=== PATIENT | male | born 1945 | race Caucasian/White ===

== ENCOUNTER 2017-02-19 14:34 | Inpatient (IN) | payer OTHER ==
--- NOTE | ~2017-02-19 | CN ---
Consultation Report [facility] [address] [place]. [address] NAME: GINA DUBON : 47 STATUS : ADM IN [facility]#: [id number] AGE: 71 ADM/REG DATE : 02/19/17 MR#: [id number] REPORT SERV DATE: 02/21/17 DICTATED BY: RADHA RYAN IV DATE: 02/20/17 REPORT STATUS : Draft TRANSCRIBED BY: MODTed DATE: 02/20/17 CRITICAL CARE CONSULT DATE OF CONSULTATION: 02/20/2017 REASON FOR REQUEST: Hypotension and worsening respiratory distress with hypoxemia and acute kidney injury. HISTORY OF PRESENT ILLNESS: History was obtained from the patient and the records. Mr. Dubon is a 71-year-old male with a history of myelodysplastic syndrome, coronary artery disease, hypertension, chronic kidney disease, recurrent left pleural effusion, status post decortication, seizure disorder, hyperlipidemia, who is transferred to the ICU from the floor with a large right pleural effusion, shortness of breath, hypotension, and acute kidney injury. The patient noted the insidious onset of increased shortness of breath approximately three weeks ago. There was no clear precipitating event or exposure. He did have a cough productive of yellowish phlegm. He denied fevers, chills, sweats, or hemoptysis. He has had no recent dental procedures, loss of consciousness, or seizures. He was empirically given Levaquin which he does not think provide any significant benefit. He was noted to have a rise in his creatinine for which his diuretic therapy was held; however, he developed increasing peripheral edema and shortness of breath with noted right pleural effusion for which his diuretic therapy was resumed. He presented back with increased creatinine and worsening status with hypotension for which he was admitted. On the floor, he received fluid resuscitation, however, had worsening creatinine and worsening shortness of breath for which he has moved to the ICU. Systolic blood pressure at the time of transfer was in the 70s. The patient has a history of a recurrent left-sided pleural effusion for which he underwent thoracoscopy and decortication last year, which demonstrated chronic pleuritis with negative cultures. PULMONARY HISTORY: Remarkable for no history of childhood asthma or known adult obstructive lung disease. He did have pneumonia as a child. He is lifelong nonsmoker with no secondary smoke exposure. 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 He is up to date on both seasonal influenza vaccine as well as pneumococcal vaccinations. PAST MEDICAL HISTORY: Remarkable for: 1. Myelodysplastic syndrome. 2. Coronary artery disease. 3. Past hypertension. 4. Chronic kidney disease. 5. Recurrent left pleural effusion. 6. Seizure disorder. 7. Hyperlipidemia. SURGERIES: 1. Left thoracoscopy and decortication. Consultation Report [address] [place]. [address] NAME: GINA DUBON : 47 STATUS : ADM IN [facility]#: [id number] AGE: 71 ADM/REG DATE : 02/19/17 MR#: [id number] REPORT SERV DATE: 02/21/17 DICTATED BY: RADHA RYAN IV DATE: 02/20/17 REPORT STATUS : Draft TRANSCRIBED BY: KANG DATE: 02/20/17 2. Coronary artery bypass grafting. 3. Port-A-Cath placement on the right. ALLERGIES: NO KNOWN DRUG ALLERGIES. MEDICATIONS: At the time of transfer, he is receiving albumin 25 g q.6 hours, Aricept 10 mg daily, aspirin 81 mg daily, Bumex 2 mg q.8 hours, Celexa 30 mg daily, heparin 5000 units q.8 hours, Lamictal 100 mg daily, Lipitor 20 mg at bedtime, Pepcid 20 mg daily, and vitamin D daily. SOCIAL HISTORY: Remarkable for no tobacco, alcohol, or illicit drug use. He is . Has two biological children. FAMILY HISTORY: Remarkable for both parents with hypertension, both in 1992. REVIEW OF SYSTEMS: 14 systems reviewed. Pertinent positives as noted above. PHYSICAL EXAMINATION: GENERAL: This is a thin, elderly male, in moderate respiratory distress with shallow rapid respiratory efforts. VITAL SIGNS: Temperature 98.6, respiratory rate is 28, saturation 93% on 4 L via nasal cannula, blood pressure 78/36, and pulse is 62. HEENT: The patient is normocephalic, atraumatic. Extraocular movements are intact. Pupils are reactive to light. Sclerae and conjunctivae normal. He has a nasal cannula in place. He has dry oral mucosa with a Mallampati III airway and narrowing of the posterior pharyngeal space. NECK: Without any palpable lymphadenopathy or thyromegaly. CHEST: The patient has bronchial breath sounds and decreased breath sounds retirement up the right hemithorax. There are some minimal crackles at the left base. No wheezes or rhonchi are noted. CARDIOVASCULAR: Jugular venous pulsations appear to be approximately 7 cm. He has 1+ carotid upstrokes. No obvious bruit. He has a regular S1, S2 with a late systolic murmur heard best at the left upper sternal border. No clear S3 is noted. Peripheral pulses are diminished. ABDOMEN: Protuberant. There is a questionable fluid wave. There is a huge spleen almost down to the pelvis. Liver edges slightly low. There are hypoactive bowel sounds. There are no other palpable masses. EXTREMITIES: Demonstrate ankle edema. There is no cyanosis, clubbing, or palpable cords. NEUROLOGIC: The patient moves all extremities. Strength is 5-/5 and symmetric and sensation is intact to light touch. LABORATORY DATA: Chest x-ray demonstrates an enlarging right-sided pleural effusion appears to be partially loculated. There is prominent cardiac silhouette. There is minimal pleural reaction at the left base. Consultation Report [address] [place]. [address] NAME: GINA DUBON : 47 STATUS : ADM IN [facility]#: [id number] AGE: 71 ADM/REG DATE : 02/19/17 MR#: [id number] REPORT SERV DATE: 02/21/17 DICTATED BY: RADHA RYAN IV DATE: 02/20/17 REPORT STATUS : Draft TRANSCRIBED BY: KANG DATE: 02/20/17 CBC: Hemoglobin 7.5, hematocrit 24.2, platelet count was 84,000, and white blood cell count is 10.4. INR is 1.6. Procalcitonin level was 0.75 and then on repeat 0.59. Chemistry: Sodium 140, potassium 4.1, chloride 108, bicarbonate 18, BUN 105, creatinine 6.09, and glucose of 91. BNP was 215. Troponin was less than 0.02. TSH is 0.924. Cortisol level was 24.6. Blood gas shows pH 7.27, pCO2 of 33, pO2 of 72. Urinalysis demonstrated 58 hyaline casts. ASSESSMENT AND PLAN: 1. Respiratory. Oxygen will be titrated to maintain saturation 90% to 94% range. Diagnostic and therapeutic right-sided thoracentesis will be obtained. X-ray will be obtained after the procedure and tomorrow. A chest, abdominal, and pelvic CT scan will be obtained for further evaluation. Albuterol will be given via EzPAP half dose q.4 hours while awake and q.2 hours as needed. 2. Infectious disease. We will send fluid for cultures. Sputum will be sent for Gram stain and culture. Zosyn will be given 3.375 g q.12 hours. Florastor 1 twice a day. 3. Cardiovascular. Levophed to maintain mean arterial pressure greater than 65. EKG will be obtained. Echocardiogram was just performed and that was unremarkable per tech. We will wait for the results. 4. Renal. 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 5. Gastrointestinal. The patient has a huge spleen on exam. Abdominal distention will be evaluated with the CT scan. Pepcid will be continued for GI prophylaxis, n.p.o. for now. 6. Endocrinologic. Cortisol level will be obtained. Thyroid functions are adequate, and the blood sugar is not elevated. 7. Neurologic. We will continue the Lamictal and Aricept. Thiamine will be given 200 mg daily x5 days. 8. Hematologic. Heparin subcutaneous for deep vein thrombosis prophylaxis. We will transfuse for low hemoglobin. Thank you for consulting us. We will accept the patient to the [facility] while on the unit. Nephrology is to place a catheter and start PROCESS CHEESE COOKER today. ADDENDUM Total time seen for critical care consult is 50 minutes, 10:10 to 11 o'clock. DORYS/KANG Radha Ryan IV, M.D. / [id number] Consultation Report [address] [place] [place] [address] NAME: GINA DUBON : 47 STATUS : ADM IN [facility]#: [id number] AGE: 71 ADM/REG DATE : 02/19/17 MR#: [id number] REPORT SERV DATE: 02/21/17 DICTATED BY: RADHA RYAN IV DATE: 02/20/17 REPORT STATUS : Draft TRANSCRIBED BY: MODL DATE: 02/20/17 / [id number] CC: Librado Kaufman MD
--- NOTE | ~2017-02-19 | HP ---
History And Physical [place] [id number] [facility] [place]. [address] NAME: GINA DUBON : [birth year] STATUS : ADM IN [facility]#: [id number] AGE: 71 ADM/REG DATE : 02/19/17 MR#: [id number] REPORT SERV DATE: 02/19/17 DICTATED BY: CLAUDIA CORTEZ II DATE: 02/19/17 REPORT STATUS : Draft TRANSCRIBED BY: MODL DATE: 02/19/17 DATE OF ADMISSION: 02/19/2017 PRIMARY ONCOLOGIST: Dr. Suarez. CHIEF COMPLAINT: Weakness, dizziness, and HANNAH. HISTORY OF PRESENT ILLNESS: The patient is a 71-year-old male with history of MDS, CKD, CAD, seizure disorder, hypertension, who presented to [facility] from Dr. Suarez's office due to worsening HANNAH. The patient began having shortness of breath a week ago today and was placed on Levaquin after chest x-ray showed concern for a right-sided consolidation, but also was noted to have a moderate-sized pleural effusion. The patient states his shortness of breath has actually started getting better, but he began having worsening edema. He saw Dr. Suarez on Sunday and given his edema, restarted his torsemide which he takes p.r.n. His baseline creatinine is around 1.2-1.5 and was 2.6 on 02/12/2017 when he had the chest x- ray and diagnosed with pneumonia. Today, in followup with Dr. Suarez, his creatinine is now 5.8, so he was asked for admission. The patient states that over the last few days, his abdomen has started to get larger and his edema has been getting worse. He says his shortness of breath has actually gotten better since the Levaquin. Currently, upon presenting to [facility], his pressure is down in the 70s/30s up into the 80s in Trendelenburg. He denies any fevers or chills. Denies any dysuria, though mentions he has not been urinating much recently. Denies any abdominal pain, nausea, vomiting, or diarrhea. States his last bowel movement was Sunday. He also notes he has been feeling very weak and dizzy and even had a presyncopal episode today while going to Dr. Suarez's office. notes history of orthostatic hypotension and the patient has been feeling dizzy for quite some time, reportedly over the last few months. Also of note, the patient had complained of some chest pain and called Dr. Baxter's office to refill nitroglycerin. At which point, he ordered an echocardiogram and stress test on 02/08/2017, which was negative for ischemia and no abnormalities on echo. REVIEW OF SYSTEMS: Otherwise, 10-point review of systems negative, except for HPI. PAST MEDICAL HISTORY: 1. Recurrent pleural effusions with history of left-sided thoracoscopy with decortication and pleurodesis. 2. CAD with coronary artery bypass graft x1 in 2014. 3. Myelodysplastic syndrome with right chest Port-A-Cath, followed by [facility]. Current therapy on hold. 4. History of TIA. 5. History of seizure disorder, on Lamictal. 6. Hypertension. 7. Hyperlipidemia. 8. Pituitary adenoma. History And Physical [address] [address] NAME: GINA DUBON : 47 STATUS : ADM IN [facility]#: [id number] AGE: 71 ADM/REG DATE : 02/19/17 MR#: [id number] REPORT SERV DATE: 02/19/17 DICTATED BY: CLAUDIA CORTEZ II DATE: 02/19/17 REPORT STATUS : Draft TRANSCRIBED BY: KAGN DATE: 02/19/17 9. BPH. 10.Memory loss. 11.CKD stage 2 or 3, baseline 1.2 to 1.5. SURGICAL HISTORY: 1. Left thoracoscopy with decortication and talc pleurodesis. 2. Coronary artery bypass graft, Port-A-Cath placement. HOME MEDICATIONS: Aspirin 81 mg p.o. daily, Lipitor, Coreg, vitamin D3, Celexa, Decadron injection, Colace, Aricept, Lamictal, lysine, hydrochloride, melatonin, Nitrostat, Zantac, Flomax, Demadex. FAMILY HISTORY: Negative for malignancy, heart disease, or renal disease. SOCIAL HISTORY: Denies any alcohol, tobacco, or drug use. Currently . PHYSICAL EXAMINATION: VITAL SIGNS: Blood pressure 86/47, pulse 58, respirations 15, O2 saturation 95% on 2 L. GENERAL: The patient is alert and oriented x3, in no acute distress. NECK: Supple. Nontender. No lymphadenopathy or thyromegaly. HEENT: Moist mucous membranes. Pupils are equal, round, and reactive to light. Conjunctivae clear. RESPIRATORY: Lungs are diminished on the right with dullness to percussion up to the upper lobe. Clear to auscultation on the left. Nonlabored breathing. CARDIOVASCULAR: Regular rate and rhythm. No murmurs, rubs, or gallops. ABDOMEN: Soft, nontender, and nondistended. Normoactive bowel sounds. EXTREMITIES: 1+ bilateral lower extremity pitting edema. No lesions, rashes, or wounds. NEURO: No focal deficits. LABORATORY DATA: From Dr. Vann's office today showed white blood cell count 9.8, hemoglobin 7.4, platelets 86, glucose 99, BUN 93, creatinine 5.8. Sodium 136, potassium 3.8, chloride 103, CO2 of 22, calcium 8.1, total protein 5.3, albumin 2.9, ALT 29, AST 36, alkaline phosphatase 51, T bilirubin 0.9. ASSESSMENT AND PLAN: The patient is a 71-year-old male with: 1. Acute kidney injury on chronic kidney disease stage 2 to 3 of uncertain etiology at this point in time, though given hypotension, certainly concerning for acute tubular necrosis, though we will have to rule out obstruction. We will place Giordano catheter and consult Nephrology. We will order renal ultrasound. Check urine electrolytes and though the patient is somewhat overloaded with edema given his hypotension, we will give him a 500 mL bolus of IV fluids and consider escalation to IMCU with no improvement. 2. Hypotension. Concerning for sepsis versus medication induced. His white count is normal. He is afebrile and his heart rate is in the 50s concerning for too high dose of Coreg. He does not appear dehydrated, so we will obtain procalcitonin, labs, lactic acid. Hold his antihypertensives and give a bolus of IV fluid and follow closely. 3. Right pleural effusion with history of left pleural effusion that was recurrent and History And Physical [address] [place]. [address] NAME: GINA DUBON : 47 STATUS : ADM IN [facility]#: [id number] AGE: 71 ADM/REG DATE : 02/19/17 MR#: [id number] REPORT SERV DATE: 02/19/17 DICTATED BY: CLAUDIA CORTEZ II DATE: 02/19/17 REPORT STATUS : Draft TRANSCRIBED BY: KANG DATE: 02/19/17 subsequently underwent decortication with pleurodesis. We will go ahead and order right thoracentesis. 4. Acute hypoxic respiratory failure secondary to above. We will wean oxygen as tolerated. 5. Recently treated pneumonia. We will recheck chest x-ray and evaluate for sepsis, though holding antibiotics at this point in time. 6. Myelodysplastic syndrome. Counts appear stable per labs from Oncology office. No need for transfusion, though we will transfuse p.r.n. in acces port. 7. History of chronic diastolic congestive heart failure with recent normal echo, 02/07/2017, essentially normal. We will check BNP. 8. Benign prostatic hypertrophy, on Flomax. We will hold Flomax for hypotension and place Giordano. 9. History of seizure disorder, on Lamictal. We will continue. 10.The patient is full code. PATTI/KANG Claudia Cortez II, MD / [id number] CC: Claudia Cortez II, MD
--- NOTE | ~2017-02-19 | DS ---
Discharge Summary [facility] [address] [place]. [address] NAME: GINA DUBON : 47 STATUS : DIS IN PAT#: [id number] AGE: 71 ADM/REG DATE : 02/19/17 MR#: [id number] REPORT SERV DATE: 02/24/17 DICTATED BY: RADHA RYAN IV DATE: 02/23/17 REPORT STATUS : Draft TRANSCRIBED BY: MODTed DATE: 02/23/17 ADMISSION DATE: 02/19/2017 DISCHARGE DATE: 02/23/2017 ADMITTING DIAGNOSES: 1. 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 2. Right pleural effusion. 3. Hypoxemic respiratory insufficiency, improved. 4. Hypotension, now on midodrine with adequate blood pressure control, initially on Levophed. 5. Acute on chronic kidney injury with transient BIOLOGY INTERN. 6. Probable bacterial pneumonia. 7. Paroxysmal atrial fibrillation with rapid ventricular response. 8. Coronary artery disease. 9. Hyperlipidemia. 10.Seizure disorder. 11.Recurrent left pleural effusion, status post VATS and decortication. CONSULTANTS: 1. Vascular Surgery. 2. Nephrology. 3. Hematology/Oncology. 4. Critical Care Medicine. PROCEDURES: 1. PICC line placement on 02/20/2017. 2. Right thoracentesis on 02/20/2017. 3. Vas-Cath placement in the right femoral vein on 02/20/2017. 4. BIOLOGY INTERN from the 02/20/2017 through 02/22/2017. 5. PleurX catheter placement on the right on 02/22/2017. MEDICATIONS: At the time of discharge include Aricept 10 mg at bedtime, Augmentin 500 mg three times a day for additional three days, Celexa 30 mg daily, Cordarone 200 mg twice a day, Florastor one twice a day, Lamictal 100 mg daily, Lipitor 20 mg daily, Pepcid 20 mg daily, Midodrine 10 mg three times a day, albuterol p.r.n., and vitamin D daily. HOSPITAL COURSE: The patient was admitted to the Hospitalist Service on 02/19/2017 with several weeks of increasing shortness of breath. The patient had a large partially loculated right pleural effusion. The patient had developed hypotension with increasing oxygen needs and distress for which he was moved to the ICU on 02/20/2017. The patient underwent a right-sided thoracentesis removal 3 L of serosanguineous that relatively sanguinous fluid with an LDH of 662. There was dramatic symptomatic relief. Cultures of this were negative; however, there were more blasts in the pleural fluid than on the periphery concerning for leukemic involvement of the pleura. The patient had a Vas-Cath placed on 02/20/2017 with initiation of BIOLOGY INTERN by Nephrology, which occurred more than 48 hours with clinical improvement. The peak creatinine was 6.09 and was 1.81 at the time of Discharge Summary [place] [id number] [place]. [address] NAME: GINA DUBON : 47 STATUS : DIS IN PAT#: [id number] AGE: 71 ADM/REG DATE : 02/19/17 MR#: [id number] REPORT SERV DATE: 02/24/17 DICTATED BY: RADHA RYAN IV DATE: 02/23/17 REPORT STATUS : Draft TRANSCRIBED BY: KANG DATE: 02/23/17 discharge. The patient developed atrial fibrillation with rapid ventricular response for which he was loaded twice with amiodarone 150 mg on a 24-hour amiodarone drip and now is on 200 mg twice a day without recurrence. He received pain medications with adequate control. All cultures were negative; however, he did have some infiltrate in the right lung for which he will be empirically treated initially in the hospital with Zosyn and switched to Augmentin renally adjusted at the time of discharge. There was a minimally elevated procalcitonin level. The findings were reviewed multiple times with family members. The patient failed therapy for his MDS with a concern about this being a transformation AML, he chose to have comfort measures performed. A PleurX catheter was placed on 02/22/2017 for drainage of fluid was over 1 L on the day of procedure and was 150 mL today. This will be used to drain fluid as an outpatient. Hospice was consulted and will accept the patient at discharge later on today. They will provide all medications as listed. The patient was made a DNR during the hospitalization with discharge to hospice. DORYS/KANG Radha Ryan IV, M.D. / [id number] CC: Librado Martinez IV, MD Edward Arrowsmith, M.D.
--- NOTE | ~2017-02-19 | CN ---
Consultation Report [facility] [address] [place]. [address] NAME: GINA DUBON : 47 STATUS : ADM IN PAT#: [id number] AGE: 71 ADM/REG DATE : 02/19/17 MR#: [id number] REPORT SERV DATE: 02/19/17 DICTATED BY: RADHA MOON DATE: 02/19/17 REPORT STATUS : Draft TRANSCRIBED BY: MODL DATE: 02/19/17 NEPHROLOGY CONSULTATION DATE OF CONSULTATION: 02/19/2017 REASON FOR CONSULT: Acute kidney injury/CKD. HISTORY OF PRESENT ILLNESS: Mr. Dubon is a 71-year-old white male, whom I saw in December 2015 when he developed acute kidney injury after talc pleurodesis and decortication of the left pleural effusion. Creatinine peaked at 2.2. His baseline creatinine has been between 1.2 and 1.4 dating back to October 2015. He has not followed up in the office. On 10/24/2016, creatinine was 1.5. A week ago, today, he was in the ER at [facility] when he was found to have creatinine of 2.6 and "pneumonia." He was given a prescription for Levaquin and sent home. Today, he went to Dr. Suarez's office where he was found to have a large right pleural effusion and reportedly worsened renal function. Those labs are not on the chart, but the family reports that today his creatinine was around 5.0. Repeat labs have not yet been received. He has had dyspnea, weight loss, edema, ascites, poor oral intake and appetite loss over the last several weeks. He has no diarrhea, nausea, or vomiting. PAST MEDICAL HISTORY: 1. CKD, baseline creatinine 1.2 to 1.4. 2. Atherosclerotic cardiovascular disease, status post robotic CABG x1 in August 2015. 3. Myelodysplastic syndrome, on chemotherapy, last dose a month ago, today per family report. 4. History of TIA. 5. History of hypertension. 6. Hyperlipidemia. 7. History of seizures. 8. BPH. 9. Left talc pleurodesis and decortication in November 2015. 10.History of acute kidney injury as per HPI. MEDICATIONS: Aspirin, Lipitor, Coreg, vitamin D, Celexa, Dacogen injection, Colace, Aricept, Lamictal, melatonin, Zantac, Flomax, and torsemide 40 mg daily for the last three days. FAMILY HISTORY: No ESRD. SOCIAL HISTORY: He is a lifelong nonsmoker, , retired, lives in [place]. His is a home health care nurse and in the room. REVIEW OF SYSTEMS: Please see HPI for pertinent details. Consultation Report [address] [place]. [address] NAME: GINA DUBON : [birth year] STATUS : ADM IN [facility]#: [id number] AGE: 71 ADM/REG DATE : 02/19/17 MR#: [id number] REPORT SERV DATE: 02/19/17 DICTATED BY: RADHA MOON DATE: 02/19/17 REPORT STATUS : Draft TRANSCRIBED BY: KANG DATE: 02/19/17 PHYSICAL EXAMINATION: VITAL SIGNS: Temperature not recorded, blood pressure 84/48, pulse 94, respirations 15, and 95% sat 2 liters per nasal cannula. GENERAL: He is an ill-appearing dyspneic white male, who is awake, alert, oriented, and cooperative with the exam. He is sitting up in his hospital stretcher in the CDU. HEENT: Sclerae without icterus. Conjunctivae are not injected. Oropharynx is clear. Mucous membranes are dry. NECK: JVD is 8 to 10 cm. LUNGS: He has decreased breath sounds at the right base associated with dyspnea and tachypnea. HEART: Regular rate and rhythm. 2/6 murmur. No rub. ABDOMEN: Soft, distended with ascites, and nontender to palpation. Bowel sounds are present throughout without rebound or guarding. EXTREMITIES: Show 2 to 3+ pitting lower extremity edema to the thighs. SKIN: Shows no rash. NEURO: Grossly nonfocal. MUSCULOSKELETAL: Shows no active tenosynovitis or gout. : Deferred. There is no Giordano catheter yet in place. DIAGNOSTIC DATA: Chest x-ray pending. Labs are pending. UA from November 2015 showed no proteinuria. ASSESSMENT AND PLAN: Mr. Dubon has chronic kidney disease, previous baseline creatinine 1.2 to 1.4, has now developed acute kidney injury in the setting of hypotension, myelodysplastic syndrome, hypoalbuminemia, hypokalemia, and anasarca. His other medical history is as outlined above. Likely, he has developed acute kidney injury related to renal hypoperfusion due to hypotension. It is unclear at this point whether he might simply have intravascular volume depletion and third spacing from low albumin versus another cause such as possible sepsis or urinary outlet obstruction? Followup labs drawn today as they are not yet available. Give albumin and Bumex tonight. Giordano catheter. He is receiving IV fluid bolus at the time of this dictation. Watch labs, provide supportive care, hopefully dialysis can be avoided. Re quantify urine protein and check urine sodium. We will follow closely with you. updated at bedside and agrees with treatment plan. TYLER/KANG Radha Consultation Report [facility] [address] [place]. [address] NAME: GINA DUBON : 47 STATUS : ADM IN PAT#: [id number] AGE: 71 ADM/REG DATE : 02/19/17 MR#: [id number] REPORT SERV DATE: 02/19/17 DICTATED BY: RADHA MOON DATE: 02/19/17 REPORT STATUS : Draft TRANSCRIBED BY: KANG DATE: 02/19/17 Librado Moon / [id number] CC: Munir Dodson II, MD
--- NOTE | ~2017-02-19 | OP ---
Record Of Operation [facility] [address] [place]. [address] NAME: GINA DUBON : 47 STATUS : ADM IN [facility]#: [id number] AGE: 71 ADM/REG DATE : 02/19/17 MR#: [id number] REPORT SERV DATE: 02/20/17 DICTATED BY: JENY CALIXTORADHA CISNEROSE DATE: 02/20/17 REPORT STATUS : Draft TRANSCRIBED BY: MODTed DATE: 02/20/17 DATE OF PROCEDURE: 02/20/2017 THORACENTESIS PROCEDURE NOTE PREOPERATIVE DIAGNOSIS: Hypoxemic respiratory insufficiency with a large right-sided pleural effusion. POSTOPERATIVE DIAGNOSES: Hypoxemic respiratory insufficiency with a large right-sided pleural effusion, and sanguinous fluid with 3 L removed with residual fluid left behind. INDICATIONS: Diagnostic and therapeutic right-sided thoracentesis with an enlarging right- sided pleural effusion with hypoxemic respiratory insufficiency. CONTRAINDICATIONS: None. CONSENT: The risks, benefits, alternative, evaluations, and treatments were discussed with the patient. Possible complications were reviewed to include air leak around the lung, bleeding, infection, low oxygen level, and even potentially . The patient agreed to the procedure with the consent signed, and witnessed on the front of the chart. PREOPERATIVE LABS: The patient's platelet count was 77,000. INR was 1.6. POWERHOUSE OILER: Radha Ryan M.D. METHOD: The patient was placed on the edge of the bed with his arms drawn across his chest and resting on a table top. The SonoSite unit was used to localize the pleural fluid. There was a very large pleural fluid collection with what appeared to be some thickened pleura. The intended area was in the ninth intercostal space just lateral to the midscapular line. The area was prepped with chlorhexidine and sterilely draped. Anesthesia was provided to the skin and deeper tissues with 4 mL of 1% lidocaine solution without epinephrine. As the needle was advanced to the deeper tissues, it was always kept perpendicular to the patient's chest wall. It was advanced to the rib, then over the rib into the pleural space. Sanguinous fluid was obtained. A small skin incision was made, and the thoracentesis catheter was advanced in a similar manner to the rib, then over the rib into the pleural space. A total of 3 L of sanguinous fluid was removed without difficulty. There was still residual fluid; however, the patient developed some pressure sensation. The procedure was stopped. Fluid sent for studies. Estimated blood loss was less than 1 mL. Re-evaluation with the ultrasound demonstrated residual fluid and no evidence for pneumothorax. The chest x-ray demonstrated residual fluid with some markedly decrease in the amount of pleural fluid. There was no pneumothorax. The patient tolerated the procedure well with excellent relief of symptoms. CT/[facility] Record Of Operation [address] [place]. [address] NAME: GINA DUBON : 47 STATUS : ADM IN PAT#: [id number] AGE: 71 ADM/REG DATE : 02/19/17 MR#: [id number] REPORT SERV DATE: 02/20/17 DICTATED BY: RADHA RYAN IV DATE: 02/20/17 REPORT STATUS : Draft TRANSCRIBED BY: KANG DATE: 02/20/17 Radha Ryan IV, M.D. / [id number] CC: Librado Kaufman MD
--- NOTE | ~2017-02-19 | EGD ---
EGD REPORT [facility] [address] [address] NAME: GINA DUBON : 47 STATUS : ADM IN PAT#: [id number] AGE: 71 ADM/REG DATE : 02/19/17 MR#: [id number] REPORT SERV DATE: 02/22/17 DICTATED BY: LAMBERTO QUIÑONEZ DATE: 02/22/17 REPORT STATUS : Draft [facility]ANSCRIBED BY: [facility] DATE: 02/22/17 Pulmonology Patient Name: Gina Dubon Procedure Date: 02/22/2017 2:10 PM Date of : 1945 Attending MD: LALITHA QUIÑONEZ MD Procedure Date No Time: 02/22/2017 Procedure: Indwelling Tunnelled Cuffed Pleural Catheter Placement Indications: Right pleural effusion Providers: LALITHA QUIÑONEZ MD Referring MD: RADHA FERMIN IV Medicines: Intradermal lidocaine 2% with epinephrine 1:100,000 20 mls. See anesthesia record Complications: No immediate complications Procedure: Pre-Anesthesia Assessment: - A History and Physical has been performed. Patient meds and allergies have been reviewed. The risks and benefits of the procedure and the sedation options and risks were discussed with the patient. All questions were answered and informed consent was obtained. Patient identification and proposed procedure were verified prior to the procedure by the physician and the nurse in the pre-procedure area in the procedure room. Mental Status Examination: alert and oriented. Airway Examination: normal oropharyngeal airway. Respiratory Examination: decreased breathe sounds at right base, but otherwise clear. CV Examination: normal and RRR, no murmurs, no S3 or S4. ASA Grade Assessment: III - A patient with severe systemic disease. After reviewing the risks and benefits, the patient was deemed in satisfactory condition to undergo the procedure. The anesthesia plan was to use monitored anesthesia care (MAC). Immediately prior to administration of medications, the patient was re-assessed for adequacy to receive sedatives. The heart rate, respiratory rate, oxygen saturations, blood pressure, adequacy of pulmonary ventilation, and response to care were monitored throughout the procedure. The physical status of the patient was re-assessed after the procedure. Findings: .After consent was obtained, a time out was performed. The patient was placed in the left lateral decubitus position with the ipsilateral arm above the patient's head. The patient was sedated by anesthesia and ultrasound survey was performed with identification of pleural fluid and surrounding structures including the diaphragm and lung tissue. EGD REPORT [address] [address] NAME: GINA DUBON : [birth year] STATUS : ADM IN [facility]#: [id number] AGE: 71 ADM/REG DATE : 02/19/17 MR#: [id number] REPORT SERV DATE: 02/22/17 DICTATED BY: LAMBERTO QUIÑONEZ DATE: 02/22/17 REPORT STATUS : Draft TRANSCRIBED BY: [employer] DATE: 02/22/17 Ultrasound image interpretation: The depth to the chest wall is approximately 2 cms. The depth of the pocket is approximately 9 cms. Ultrasound images were permanently documented. The site of entry was marked using ultrasound guidance. After donning cap, mask, sterile gown and gloves, the patient was prepped with chlorhexadine and drapped. 10 ccs of 2% lidocaine with epinephrine 1:100,000 was used to numb the region. A finder needle was then used to locate fluid with aspiration of serosanguinous fluid. An angiocath sheath was inserted followed by guidewire placement. A small incision was performed at insertion site of the guide wire to expose the subcutaneous tissue. Then an additional 20 ccs of 2% lidocaine with epinephrine was used to numb the subcutanous tract and second incision site. A similar second incision was made approximately 5 cm below the initial incision. The pleural catheter was tunnelled in the usual manner. The trocar was inserted over the wire and the pleural catheter placed into pleural space. 1800 ccs of serosanguinous fluid was drained. The catheter was secured using 3.0 silk and a tegaderm dressing was applied. Impression: Right pleurX catheter placement 1800 ccs of serosanguinous fluid was drained. Recommendation: 1. Post-procedure stat portable chest x-ray 2. Hospice to drain daily 3. Case management consultation for discharge planning 4. Follow up with the pulmonary clinic in 10 to 14 days to remove stitches and inspect site Attending Participation: I personally performed the entire procedure. LALITHA QUIÑONEZ MD 02/22/2017 2:13 PM This report has been signed electronically. Number of Addenda: 0 Note Initiated On: 02/22/2017 2:10 PM [address] [address]
[~2017-02-19 14:34] MED LIST: ARICEPT10 PO; ASAB PO; BRILINTA90 MG PO; CARDU4 PO; CELEXA20 PO; CO Q-10100 MG PO; CORDARONE PO; COREG12 PO; COREG25 PO; COREG6 PO; COZ25 PO; DEMA20 PO; EXELON3 PO; FLOMAX4 PO; HEMOCYTET PO; IMDUR30 PO; K-TABS10 MEQ PO; KDUR20 PO; KEPPRA1000 MG PO; KEPPRA500 PO; L40 PO; LAMICTAL10 PO; LIPITOR20 PO; LIPITOR40 PO; LISINOPRIL40 MG PO; NITROQUICK0.4 MG SL; NITROSTAT0.4 MG SL; NORV10 PO; PCET PO; PLAVIX PO; PRILO PO; PROTONIX PO; RAN500 PO; SUPER B COMP OR; T PO; TRANDAT300 PO; VASOTEC10 PO; VIDAZA; VIDAZA100 MG IJ; VITAMIN B-121000 MC1 SL; ZOCOR20 PO
[2017-02-19] MEDS ORDERED: ARICEPT10 PO (15:55)
[2017-02-19] MEDS ORDERED: LIPITOR20 PO (15:56)
[2017-02-19] MEDS ORDERED: ASAB PO (15:56)
[2017-02-19] MEDS ORDERED: CELEXA10 PO (15:56)
[2017-02-19] MEDS ORDERED: COREG12 PO (15:56)
[2017-02-19] MEDS ORDERED: DACOGEN50 MG IV (15:57)
[2017-02-19] MEDS ORDERED: DEMA20 PO (15:58)
[2017-02-19] MEDS ORDERED: LAMICTAL10 PO (15:59)
[2017-02-19] MEDS ORDERED: FLOMAX4 PO (15:59)
[2017-02-19] MEDS ORDERED: NITROSTAT0.4 MG SL (15:59)
[2017-02-19] MEDS ORDERED: VITAMIN D31000 UNIT PO (16:01)
[2017-02-19] MEDS ORDERED: L-LYSINE500 M1 PO (16:01)
[2017-02-19] MEDS ORDERED: ZANTAC150 MG PO (16:02)
[2017-02-19] MEDS ORDERED: DSS PO (16:02)
[2017-02-19] MEDS ORDERED: MELATONIN5 M1 PO (16:02)
[2017-02-19 17:17] LABS: MEAN CORPUS HGB CONC 30.4 g/dL (32.0-36.0); MEAN CORPUSCULAR HEMOGLOB 26.2 pg (26.0-34.0); MEAN CORPUSCULAR VOLUME 86.3 fL (80-100); NUCLEATED RED BLOOD CELLS 1.9 /100WBC (0-0); RBC DISTRIBUTION WIDTH 18.8 % (12.0-16.0); RED CELL COUNT 2.63 10/6/uL (4.7-6.1); WHITE BLOOD CELLS 8.9 10/3/uL (4.5-10.5)
[2017-02-19 17:19] LABS: HEMATOCRIT 22.7 % (40.0-51.0); HEMOGLOBIN 6.9 g/dL (13.6-17.8); PLATELET COUNT 73 10/3/uL (150-400)
[2017-02-19 17:22] LABS: MANUAL DIFF YES %
[2017-02-19 17:33] LABS: INTERNATIONAL NORMAL RATI 1.6 UNITS (-); PROTIME (NOT ORD) 19.2 SEC (12.0-14.5)
[2017-02-19 17:37] LABS: ALBUMIN 2.6 G/DL (3.5-5.0); ALKALINE PHOSPHATASE 58 U/L (45-117); BUN (BLOOD UREA NITROGEN) 99 MG/DL (6-23); CALCIUM, SERUM 8.1 MG/DL (8.5-10.4); CHLORIDE, SERUM 109 MMOL/L (96-112); CO2 (CARBON DIOXIDE) 21 MMOL/L (24-34); CREATININE 5.94 MG/DL (0.70-1.30); GFR AFRICAN AMERICAN 10 ML/MIN (>=60); GFR NON AFRICAN AMERICAN 9 ML/MIN (>=60); GLOBULIN 2.5 G/DL (2.5-4.1); GLUCOSE, SERUM 96 MG/DL (60-99); PHOSPHORUS, SERUM 8.2 MG/DL (2.5-4.5); SGOT(AST) 23 U/L (5-40); SGPT(ALT) 13 U/L (5-65); SODIUM, SERUM 141 MMOL/L (135-148); TOTAL BILIRUBIN 0.9 MG/DL (0-1.2); TOTAL PROTEIN 5.1 G/DL (6.0-8.5); TROPONIN I <0.02 NG/ML (<0.05); ULTRASENSITIVE TSH 0.924 MCIU/ML (0.358-3.740)
[2017-02-19 17:51] LABS: PARTIAL THROMBO TIME > 150.0 SEC (22.5-37.2)
[2017-02-19 17:56] LABS: BAND NEUTROPHILS 10 %; BASOPHILS 1 %; BASOPHILS ABSOLUTE (CALC) 0.09 10/3/uL (0.0-0.16); BLASTS 16 % (0); EOSINOPHILS 1 %; EOSINOPHILS ABSOLUTE (CALC) 0.09 10/3/uL (0.0-0.53); IMMATURE GRANS ABSOLUTE (CALC) 0.62 10/3/uL (0.0-0.11); LYMPHOCYTES 30 %; LYMPHOCYTES ABSOLUTE (CALC) 2.67 10/3/uL (0.67-4.30); METAMYELOCYTES 4 %; MONOCYTES 3 %; MONOCYTES ABSOLUTE (CALC) 0.27 10/3/uL (0.21-1.20); MYELOCYTES 3 %; NEUTROPHILS ABSOLUTE (CALC) 3.74 10/3/uL (2.02-8.40); SEGMENTED NEUTROPHIL (0) 32 %; TOTAL NUCLEATED CELLS 100
[2017-02-19 17:57] LABS: OVALOCYTES 3+ (>30/OIF) (0-2/OIF); TEARDROP SHAPED RBCS OCC (0-2/OIF)
[2017-02-19 17:58] LABS: ANISOCYTOSIS 1+ (5-10/OIF) (0-5/OIF); GIANT PLATELET FEW; PLATELET ESTIMATE DEC (ADEQUATE)
[2017-02-19 17:59] LABS: ACANTHOCYTES OCC (0-2/OIF)
[2017-02-19 19:26] LABS: ASCORBIC ACID (UR NOT ORDER) NEG (NEG); BILIRUBIN, URINE SMALL (NEG); KETONE, URINE NEGATIVE (NEG); LEUKOCYTE ESTERASE(NOT OR NEG (NEG); WBC (NOT ORDERED) (RFLEX) < 1 (0-5)
[2017-02-19 21:10] LABS: PROCALCITONIN 0.75 ng/mL (<0.5)
[2017-02-20 05:27] LABS: CHLORIDE, SERUM 108 MMOL/L (96-112); CO2 (CARBON DIOXIDE) 18 MMOL/L (24-34); CREATININE 6.09 MG/DL (0.70-1.30); GFR AFRICAN AMERICAN 10 ML/MIN (>=60); GFR NON AFRICAN AMERICAN 9 ML/MIN (>=60); GLUCOSE, SERUM 91 MG/DL (60-99); PHOSPHORUS, SERUM 8.7 MG/DL (2.5-4.5); POTASSIUM, SERUM 4.1 MMOL/L (3.5-5.3); SODIUM, SERUM 140 MMOL/L (135-148)
[2017-02-20 05:46] LABS: BUN (BLOOD UREA NITROGEN) 105 MG/DL (6-23)
[2017-02-20 06:31] LABS: HEMATOCRIT 24.2 % (40.0-51.0); HEMOGLOBIN 7.5 g/dL (13.6-17.8); MEAN CORPUSCULAR HEMOGLOB 26.7 pg (26.0-34.0); MEAN CORPUSCULAR VOLUME 86.1 fL (80-100); NUCLEATED RED BLOOD CELLS 1.2 /100WBC (0-0); PLATELET COUNT 84 10/3/uL (150-400); RBC DISTRIBUTION WIDTH 18.2 % (12.0-16.0); RED CELL COUNT 2.81 10/6/uL (4.7-6.1); WHITE BLOOD CELLS 10.4 10/3/uL (4.5-10.5)
[2017-02-20 06:37] LABS: MANUAL DIFF YES %
[2017-02-20 07:50] LABS: ANISOCYTOSIS 1+ (5-10/OIF) (0-5/OIF); BAND NEUTROPHILS 24 %; BASOPHILS 3 %; BASOPHILS ABSOLUTE (CALC) 0.31 10/3/uL (0.0-0.16); BLASTS 24 % (0); ELLIPTOCYTES 1+ (3-10/OIF) (0-2/OIF); IMMATURE GRANS ABSOLUTE (CALC) 0.52 10/3/uL (0.0-0.11); LYMPHOCYTES 14 %; LYMPHOCYTES ABSOLUTE (CALC) 1.46 10/3/uL (0.67-4.30); METAMYELOCYTES 3 %; MONOCYTES 3 %; MONOCYTES ABSOLUTE (CALC) 0.31 10/3/uL (0.21-1.20); MYELOCYTES 2 %; PLATELET ESTIMATE ADQ (ADEQUATE); SEGMENTED NEUTROPHIL (0) 27 %; TOTAL NUCLEATED CELLS 100
[2017-02-20 07:51] LABS: POLYCHROMASIA 1+ (2-5/OIF) (0-1/OIF); TEARDROP SHAPED RBCS OCC (0-2/OIF)
[2017-02-20 08:48] LABS: CARBOXYHEMOGLOBIN 1.5 % (0-3); DEVICE NC; HCO3 (ACTUAL BICARBONATE) 14.8 MEQ/L (23-27); HEMOBLOGIN CONTENT 8.1 G/DL (14-18); INSTRUMENT SERIAL # 8083; METHEMOGLOBIN 0.9 % (0-3); O2 CONTENT 10.2 VOL% (18-24); OPERATOR ID 32214; PCO2 (CO2 TENSION) 33 MMHG (35-45); PO2 (O2 TENSION) 72 MMHG (79-93); SAMPLE Arterial; pH 7.27 (7.37-7.43)
[2017-02-20 10:33] LABS: PROCALCITONIN 0.59 ng/mL (<0.5)
[2017-02-20 12:00] LABS: CALCIUM, SERUM 7.8 MG/DL (8.5-10.4); CHLORIDE, SERUM 108 MMOL/L (96-112); CO2 (CARBON DIOXIDE) 18 MMOL/L (24-34); CREATININE 5.97 MG/DL (0.70-1.30); GFR AFRICAN AMERICAN 10 ML/MIN (>=60); GFR NON AFRICAN AMERICAN 9 ML/MIN (>=60); GLUCOSE, SERUM 91 MG/DL (60-99); PHOSPHORUS, SERUM 8.1 MG/DL (2.5-4.5); POTASSIUM, SERUM 4.2 MMOL/L (3.5-5.3); SODIUM, SERUM 143 MMOL/L (135-148)
[2017-02-20 12:01] LABS: BUN (BLOOD UREA NITROGEN) 106 MG/DL (6-23)
[2017-02-20 12:16] LABS: INSTRUMENT SERIAL # 35151; SAMPLE PLR; pH 7.21 (7.37-7.43)
[2017-02-20 12:46] LABS: GLUCOSE BODY FL (NOT ORD) 81 MG/DL; LDH BODY FLUID (NOT ORD) 662 U/L; PROTEIN BODY FLUID 3.4 G/DL
[2017-02-20 12:47] LABS: BODY FLUID CHOLESTEROL < 50 MG/DL
[2017-02-20 12:50] LABS: BF TOTAL CELL CT (NOT ORD 1127 /MM3; BODY FLUID RBC (NOT ORD) 187476 /MM3
[2017-02-20 12:51] LABS: A/G RATIO 1.2 (0.7-1.9); ALKALINE PHOSPHATASE 62 U/L (45-117); GLOBULIN 2.6 G/DL (2.5-4.1); RHEUMATOID FACTOR QUANT 12 IU/ML (0-15); SGOT(AST) 26 U/L (5-40); SGPT(ALT) 16 U/L (5-65); TOTAL BILIRUBIN 0.8 MG/DL (0-1.2); TOTAL PROTEIN 5.6 G/DL (6.0-8.5)
[2017-02-20 13:03] LABS: HEMATOCRIT 22.8 % (40.0-51.0); HEMOGLOBIN 7.1 g/dL (13.6-17.8); INTERNATIONAL NORMAL RATI 1.6 UNITS (-); MEAN CORPUS HGB CONC 31.1 g/dL (32.0-36.0); MEAN CORPUSCULAR HEMOGLOB 26.8 pg (26.0-34.0); NUCLEATED RED BLOOD CELLS 1.4 /100WBC (0-0); PLATELET COUNT 77 10/3/uL (150-400); PROTIME (NOT ORD) 19.1 SEC (12.0-14.5); RBC DISTRIBUTION WIDTH 18.5 % (12.0-16.0); RED CELL COUNT 2.65 10/6/uL (4.7-6.1); WHITE BLOOD CELLS 9.6 10/3/uL (4.5-10.5)
[2017-02-20 13:04] LABS: MANUAL DIFF YES %
[2017-02-20 13:22] LABS: BD FL LYMPH (NOT ORD) 5 %; BF BASO (NOT OF) 0 %; BF LARGE MONONUCLEAR 80 %; BODY FLUID EOS (NOT ORD) 1 %; BODY FLUID SEG (NOT ORD) 14 %
[2017-02-20 13:23] LABS: BD FL SOURCE (NOT ORD) PLEURAL
[2017-02-20 13:29] LABS: BAND NEUTROPHILS 4 %; BASOPHILS 2 %; BASOPHILS ABSOLUTE (CALC) 0.19 10/3/uL (0.0-0.16); IMMATURE GRANS ABSOLUTE (CALC) 0.77 10/3/uL (0.0-0.11); LYMPHOCYTES 19 %; LYMPHOCYTES ABSOLUTE (CALC) 1.82 10/3/uL (0.67-4.30); METAMYELOCYTES 4 %; MONOCYTES 20 %; MONOCYTES ABSOLUTE (CALC) 1.92 10/3/uL (0.21-1.20); MYELOCYTES 4 %; NEUTROPHILS ABSOLUTE (CALC) 3.36 10/3/uL (2.02-8.40); SEGMENTED NEUTROPHIL (0) 31 %; TOTAL NUCLEATED CELLS 100
[2017-02-20 13:30] LABS: ANISOCYTOSIS 1+ (5-10/OIF) (0-5/OIF); BLASTS 16 % (0); MICROCYTES 1+ (5-10/OIF) (0-5/OIF); PLATELET ESTIMATE DEC (ADEQUATE); POLYCHROMASIA 1+ (2-5/OIF) (0-1/OIF)
[2017-02-20 17:43] LABS: HEMOGLOBIN 7.5 g/dL (13.6-17.8); MANUAL DIFF YES %; MEAN CORPUS HGB CONC 31.3 g/dL (32.0-36.0); MEAN CORPUSCULAR HEMOGLOB 26.6 pg (26.0-34.0); MEAN CORPUSCULAR VOLUME 85.1 fL (80-100); PLATELET COUNT 74 10/3/uL (150-400); RBC DISTRIBUTION WIDTH 18.5 % (12.0-16.0); RED CELL COUNT 2.82 10/6/uL (4.7-6.1)
[2017-02-20 18:02] LABS: CALCIUM, SERUM 7.6 MG/DL (8.5-10.4); CHLORIDE, SERUM 110 MMOL/L (96-112); CO2 (CARBON DIOXIDE) 19 MMOL/L (24-34); GLUCOSE, SERUM 85 MG/DL (60-99); POTASSIUM, SERUM 3.7 MMOL/L (3.5-5.3); SODIUM, SERUM 145 MMOL/L (135-148)
[2017-02-20 18:03] LABS: BUN (BLOOD UREA NITROGEN) 94 MG/DL (6-23); GFR AFRICAN AMERICAN 13 ML/MIN (>=60); GFR NON AFRICAN AMERICAN 11 ML/MIN (>=60); PHOSPHORUS, SERUM 6.7 MG/DL (2.5-4.5)
[2017-02-20 18:08] LABS: ANISOCYTOSIS 1+ (5-10/OIF) (0-5/OIF); BAND NEUTROPHILS 13 %; BASOPHILS 1 %; BLASTS 23 % (0); LYMPHOCYTES 28 %; METAMYELOCYTES 6 %; MONOCYTES 7 %; MYELOCYTES 2 %; SEGMENTED NEUTROPHIL (0) 20 %; TOTAL NUCLEATED CELLS 100
[2017-02-20 18:09] LABS: GIANT PLATELET OCC; MICROCYTES 1+ (5-10/OIF) (0-5/OIF)
[2017-02-20 18:10] LABS: SCHISTOCYTES OCC (0-2/OIF)
[2017-02-20 22:49] LABS: HEMATOCRIT 24.1 % (40.0-51.0); HEMOGLOBIN 7.6 g/dL (13.6-17.8); MEAN CORPUS HGB CONC 31.5 g/dL (32.0-36.0); MEAN CORPUSCULAR HEMOGLOB 26.8 pg (26.0-34.0); MEAN CORPUSCULAR VOLUME 84.9 fL (80-100); NUCLEATED RED BLOOD CELLS 1.9 /100WBC (0-0); PLATELET COUNT 76 10/3/uL (150-400); RBC DISTRIBUTION WIDTH 18.1 % (12.0-16.0); RED CELL COUNT 2.84 10/6/uL (4.7-6.1); WHITE BLOOD CELLS 8.3 10/3/uL (4.5-10.5)
[2017-02-20 22:51] LABS: MANUAL DIFF YES %
[2017-02-20 22:59] LABS: CALCIUM, SERUM 7.2 MG/DL (8.5-10.4); CHLORIDE, SERUM 109 MMOL/L (96-112); GFR AFRICAN AMERICAN 20 ML/MIN (>=60); GFR NON AFRICAN AMERICAN 18 ML/MIN (>=60); GLUCOSE, SERUM 77 MG/DL (60-99); POTASSIUM, SERUM 3.6 MMOL/L (3.5-5.3); SODIUM, SERUM 145 MMOL/L (135-148)
[2017-02-20 23:01] LABS: BUN (BLOOD UREA NITROGEN) 70 MG/DL (6-23); CO2 (CARBON DIOXIDE) 25 MMOL/L (24-34); CREATININE 3.36 MG/DL (0.70-1.30)
[2017-02-20 23:47] LABS: BAND NEUTROPHILS 9 %; BLASTS 24 % (0); IMMATURE GRANS ABSOLUTE (CALC) 0.42 10/3/uL (0.0-0.11); LYMPHOCYTES 28 %; LYMPHOCYTES ABSOLUTE (CALC) 2.32 10/3/uL (0.67-4.30); METAMYELOCYTES 4 %; MONOCYTES 7 %; MONOCYTES ABSOLUTE (CALC) 0.58 10/3/uL (0.21-1.20); MYELOCYTES 1 %; NEUTROPHILS ABSOLUTE (CALC) 2.99 10/3/uL (2.02-8.40); SEGMENTED NEUTROPHIL (0) 27 %; TOTAL NUCLEATED CELLS 100
[2017-02-20 23:48] LABS: ANISOCYTOSIS 1+ (5-10/OIF) (0-5/OIF); ATYPICAL LYMPH MOD (6-10%) (0-5%); PLATELET ESTIMATE DEC (ADEQUATE); RBC MORPHOLOGY ABN (NORMAL)
[2017-02-21 03:26] LABS: ALLENS TEST Pos; CARBOXYHEMOGLOBIN 1.2 % (0-3); DEVICE NC; HCO3 (ACTUAL BICARBONATE) 24.5 MEQ/L (23-27); HEMOBLOGIN CONTENT 8.6 G/DL (14-18); INSTRUMENT SERIAL # 8083; METHEMOGLOBIN 0.7 % (0-3); O2 CONTENT 11.5 VOL% (18-24); OPERATOR ID 17370; PCO2 (CO2 TENSION) 39 MMHG (35-45); PO2 (O2 TENSION) 83 MMHG (79-93); SAMPLE Arterial; pH 7.42 (7.37-7.43)
[2017-02-21 04:32] LABS: BUN (BLOOD UREA NITROGEN) 50 MG/DL (6-23); CHLORIDE, SERUM 107 MMOL/L (96-112); CO2 (CARBON DIOXIDE) 26 MMOL/L (24-34); CREATININE 2.44 MG/DL (0.70-1.30); GFR AFRICAN AMERICAN 30 ML/MIN (>=60); GFR NON AFRICAN AMERICAN 26 ML/MIN (>=60); GLUCOSE, SERUM 78 MG/DL (60-99); PHOSPHORUS, SERUM 2.6 MG/DL (2.5-4.5); POTASSIUM, SERUM 3.5 MMOL/L (3.5-5.3); SODIUM, SERUM 145 MMOL/L (135-148)
[2017-02-21 04:35] LABS: HEMATOCRIT 23.8 % (40.0-51.0); HEMOGLOBIN 7.5 g/dL (13.6-17.8); MEAN CORPUS HGB CONC 31.5 g/dL (32.0-36.0); MEAN CORPUSCULAR HEMOGLOB 26.9 pg (26.0-34.0); MEAN CORPUSCULAR VOLUME 85.3 fL (80-100); NUCLEATED RED BLOOD CELLS 1.3 /100WBC (0-0); PLATELET COUNT 77 10/3/uL (150-400); RBC DISTRIBUTION WIDTH 18.1 % (12.0-16.0); RED CELL COUNT 2.79 10/6/uL (4.7-6.1); WHITE BLOOD CELLS 7.9 10/3/uL (4.5-10.5)
[2017-02-21 04:38] LABS: MANUAL DIFF YES %
[2017-02-21 04:49] LABS: ANISOCYTOSIS 1+ (5-10/OIF) (0-5/OIF); BLASTS 20 % (0); LYMPHOCYTES 22 %; LYMPHOCYTES ABSOLUTE (CALC) 1.74 10/3/uL (0.67-4.30); METAMYELOCYTES 3 %; MONOCYTES 9 %; MONOCYTES ABSOLUTE (CALC) 0.71 10/3/uL (0.21-1.20); MYELOCYTES 2 %; NEUTROPHILS ABSOLUTE (CALC) 3.48 10/3/uL (2.02-8.40); PLATELET ESTIMATE DEC (ADEQUATE); RBC MORPHOLOGY ABN (NORMAL); SEGMENTED NEUTROPHIL (0) 44 %; TOTAL NUCLEATED CELLS 100
[2017-02-21 09:39] LABS: ANA TITER <1:40 TITER
[2017-02-21 09:48] LABS: HEMATOCRIT 28.1 % (40.0-51.0); MANUAL DIFF YES %; MEAN CORPUSCULAR HEMOGLOB 27.3 pg (26.0-34.0); MEAN CORPUSCULAR VOLUME 85.2 fL (80-100); NUCLEATED RED BLOOD CELLS 1.7 /100WBC (0-0); PLATELET COUNT 84 10/3/uL (150-400); RBC DISTRIBUTION WIDTH 18.2 % (12.0-16.0); WHITE BLOOD CELLS 11.6 10/3/uL (4.5-10.5)
[2017-02-21 09:56] LABS: CALCIUM, SERUM 7.3 MG/DL (8.5-10.4); CHLORIDE, SERUM 106 MMOL/L (96-112); CO2 (CARBON DIOXIDE) 29 MMOL/L (24-34); GFR AFRICAN AMERICAN 40 ML/MIN (>=60); GFR NON AFRICAN AMERICAN 34 ML/MIN (>=60); GLUCOSE, SERUM 87 MG/DL (60-99); POTASSIUM, SERUM 3.7 MMOL/L (3.5-5.3); SODIUM, SERUM 142 MMOL/L (135-148)
[2017-02-21 09:57] LABS: BUN (BLOOD UREA NITROGEN) 35 MG/DL (6-23); CREATININE 1.93 MG/DL (0.70-1.30)
[2017-02-21 10:02] LABS: ANISOCYTOSIS 1+ (5-10/OIF) (0-5/OIF); BAND NEUTROPHILS 6 %; BASOPHILS 2 %; BASOPHILS ABSOLUTE (CALC) 0.23 10/3/uL (0.0-0.16); BLASTS 27 % (0); ELLIPTOCYTES 1+ (3-10/OIF) (0-2/OIF); EOSINOPHILS 1 %; EOSINOPHILS ABSOLUTE (CALC) 0.12 10/3/uL (0.0-0.53); IMMATURE GRANS ABSOLUTE (CALC) 0.35 10/3/uL (0.0-0.11); LYMPHOCYTES 11 %; LYMPHOCYTES ABSOLUTE (CALC) 1.28 10/3/uL (0.67-4.30); METAMYELOCYTES 2 %; MONOCYTES 11 %; MONOCYTES ABSOLUTE (CALC) 1.28 10/3/uL (0.21-1.20); MYELOCYTES 1 %; NEUTROPHILS ABSOLUTE (CALC) 5.22 10/3/uL (2.02-8.40); PLATELET ESTIMATE DEC (ADEQUATE); SEGMENTED NEUTROPHIL (0) 39 %; TOTAL NUCLEATED CELLS 100
[2017-02-21 10:03] LABS: GIANT PLATELET OCC; POLYCHROMASIA 1+ (2-5/OIF) (0-1/OIF); SCHISTOCYTES OCC (0-2/OIF)
[2017-02-21 10:04] LABS: OVALOCYTES 1+ (3-10/OIF) (0-2/OIF)
[2017-02-21 15:28] LABS: HEMATOCRIT 29.2 % (40.0-51.0); HEMOGLOBIN 9.2 g/dL (13.6-17.8); MEAN CORPUS HGB CONC 31.5 g/dL (32.0-36.0); MEAN CORPUSCULAR HEMOGLOB 26.9 pg (26.0-34.0); MEAN CORPUSCULAR VOLUME 85.4 fL (80-100); NUCLEATED RED BLOOD CELLS 2.6 /100WBC (0-0); PLATELET COUNT 92 10/3/uL (150-400); RBC DISTRIBUTION WIDTH 18.5 % (12.0-16.0); RED CELL COUNT 3.42 10/6/uL (4.7-6.1); WHITE BLOOD CELLS 10.3 10/3/uL (4.5-10.5)
[2017-02-21 15:31] LABS: MANUAL DIFF YES %
[2017-02-21 15:44] LABS: ANISOCYTOSIS 1+ (5-10/OIF) (0-5/OIF); BAND NEUTROPHILS 5 %; BASOPHILS 2 %; BASOPHILS ABSOLUTE (CALC) 0.21 10/3/uL (0.0-0.16); BLASTS 26 % (0); EOSINOPHILS 1 %; HYPOCHROMIA 1+ (3-10/OIF) (0-2/OIF); IMMATURE GRANS ABSOLUTE (CALC) 0.41 10/3/uL (0.0-0.11); LYMPHOCYTES 13 %; LYMPHOCYTES ABSOLUTE (CALC) 1.34 10/3/uL (0.67-4.30); METAMYELOCYTES 2 %; MONOCYTES 13 %; MONOCYTES ABSOLUTE (CALC) 1.34 10/3/uL (0.21-1.20); MYELOCYTES 2 %; NEUTROPHILS ABSOLUTE (CALC) 4.22 10/3/uL (2.02-8.40); PLATELET ESTIMATE DEC (ADEQUATE); SEGMENTED NEUTROPHIL (0) 36 %; TOTAL NUCLEATED CELLS 100
[2017-02-21 15:45] LABS: ELLIPTOCYTES 1+ (3-10/OIF) (0-2/OIF); GIANT PLATELET RARE; OVALOCYTES 1+ (3-10/OIF) (0-2/OIF); POIKILOCYTOSIS 1+ (5-10/OIF) (0-5/OIF); POLYCHROMASIA 1+ (2-5/OIF) (0-1/OIF); SCHISTOCYTES OCC (0-2/OIF); TEARDROP SHAPED RBCS OCC (0-2/OIF)
[2017-02-21 16:05] LABS: CALCIUM, SERUM 7.5 MG/DL (8.5-10.4); CHLORIDE, SERUM 103 MMOL/L (96-112); CO2 (CARBON DIOXIDE) 31 MMOL/L (24-34); CREATININE 1.76 MG/DL (0.70-1.30); GFR AFRICAN AMERICAN 44 ML/MIN (>=60); GFR NON AFRICAN AMERICAN 38 ML/MIN (>=60); PHOSPHORUS, SERUM 1.9 MG/DL (2.5-4.5); POTASSIUM, SERUM 4.1 MMOL/L (3.5-5.3); SODIUM, SERUM 142 MMOL/L (135-148)
[2017-02-21 16:06] LABS: BUN (BLOOD UREA NITROGEN) 28 MG/DL (6-23); GLUCOSE, SERUM 117 MG/DL (60-99)
[2017-02-21 17:50] LABS: CK-MB 1.4 NG/ML; CPK 51 U/L (0-200); TROPONIN I 0.06 NG/ML (<0.05)
[2017-02-21 22:43] LABS: HEMATOCRIT 30.1 % (40.0-51.0); HEMOGLOBIN 9.4 g/dL (13.6-17.8); MEAN CORPUS HGB CONC 31.2 g/dL (32.0-36.0); MEAN CORPUSCULAR HEMOGLOB 26.7 pg (26.0-34.0); MEAN CORPUSCULAR VOLUME 85.5 fL (80-100); NUCLEATED RED BLOOD CELLS 2.6 /100WBC (0-0); PLATELET COUNT 80 10/3/uL (150-400); RBC DISTRIBUTION WIDTH 18.1 % (12.0-16.0); RED CELL COUNT 3.52 10/6/uL (4.7-6.1); WHITE BLOOD CELLS 11.9 10/3/uL (4.5-10.5)
[2017-02-21 22:44] LABS: MANUAL DIFF YES %
[2017-02-21 22:54] LABS: CALCIUM, SERUM 7.1 MG/DL (8.5-10.4); CHLORIDE, SERUM 102 MMOL/L (96-112); CO2 (CARBON DIOXIDE) 31 MMOL/L (24-34); CREATININE 1.57 MG/DL (0.70-1.30); GFR AFRICAN AMERICAN 51 ML/MIN (>=60); GFR NON AFRICAN AMERICAN 44 ML/MIN (>=60); GLUCOSE, SERUM 131 MG/DL (60-99); POTASSIUM, SERUM 3.9 MMOL/L (3.5-5.3); SODIUM, SERUM 140 MMOL/L (135-148)
[2017-02-21 22:56] LABS: BUN (BLOOD UREA NITROGEN) 20 MG/DL (6-23)
[2017-02-21 23:08] LABS: ANISOCYTOSIS 1+ (5-10/OIF) (0-5/OIF); BAND NEUTROPHILS 5 %; BLASTS 22 % (0); LYMPHOCYTES 15 %; LYMPHOCYTES ABSOLUTE (CALC) 1.79 10/3/uL (0.67-4.30); MONOCYTES 20 %; MONOCYTES ABSOLUTE (CALC) 2.38 10/3/uL (0.21-1.20); NEUTROPHILS ABSOLUTE (CALC) 5.12 10/3/uL (2.02-8.40); PLATELET ESTIMATE DEC (ADEQUATE); RBC MORPHOLOGY ABN (NORMAL); SEGMENTED NEUTROPHIL (0) 38 %; TOTAL NUCLEATED CELLS 100
[2017-02-22 04:44] LABS: INTERNATIONAL NORMAL RATI 1.6 UNITS (-); PROTIME (NOT ORD) 18.8 SEC (12.0-14.5)
[2017-02-22 04:59] LABS: CHLORIDE, SERUM 102 MMOL/L (96-112); CO2 (CARBON DIOXIDE) 34 MMOL/L (24-34); CREATININE 1.37 MG/DL (0.70-1.30); GFR AFRICAN AMERICAN 60 ML/MIN (>=60); GFR NON AFRICAN AMERICAN 52 ML/MIN (>=60); GLUCOSE, SERUM 132 MG/DL (60-99); HEMATOCRIT 27.8 % (40.0-51.0); HEMOGLOBIN 8.9 g/dL (13.6-17.8); MEAN CORPUSCULAR HEMOGLOB 27.2 pg (26.0-34.0); NUCLEATED RED BLOOD CELLS 2.3 /100WBC (0-0); PLATELET COUNT 60 10/3/uL (150-400); POTASSIUM, SERUM 3.5 MMOL/L (3.5-5.3); RBC DISTRIBUTION WIDTH 18.1 % (12.0-16.0); RED CELL COUNT 3.27 10/6/uL (4.7-6.1); SODIUM, SERUM 140 MMOL/L (135-148); WHITE BLOOD CELLS 11.7 10/3/uL (4.5-10.5)
[2017-02-22 05:00] LABS: MANUAL DIFF YES %
[2017-02-22 05:02] LABS: BUN (BLOOD UREA NITROGEN) 16 MG/DL (6-23); PHOSPHORUS, SERUM 2.7 MG/DL (2.5-4.5)
[2017-02-22 05:12] LABS: ANISOCYTOSIS 1+ (5-10/OIF) (0-5/OIF); BAND NEUTROPHILS 6 %; BLASTS 18 % (0); IMMATURE GRANS ABSOLUTE (CALC) 0.12 10/3/uL (0.0-0.11); LYMPHOCYTES 11 %; LYMPHOCYTES ABSOLUTE (CALC) 1.29 10/3/uL (0.67-4.30); METAMYELOCYTES 1 %; MONOCYTES 20 %; MONOCYTES ABSOLUTE (CALC) 2.34 10/3/uL (0.21-1.20); NEUTROPHILS ABSOLUTE (CALC) 5.85 10/3/uL (2.02-8.40); PLATELET ESTIMATE DEC (ADEQUATE); RBC MORPHOLOGY ABN (NORMAL); SEGMENTED NEUTROPHIL (0) 44 %; TOTAL NUCLEATED CELLS 100
[2017-02-23 04:11] LABS: HEMOGLOBIN 7.9 g/dL (13.6-17.8); MEAN CORPUSCULAR HEMOGLOB 27.4 pg (26.0-34.0); MEAN CORPUSCULAR VOLUME 85.8 fL (80-100); RBC DISTRIBUTION WIDTH 17.8 % (12.0-16.0); RED CELL COUNT 2.88 10/6/uL (4.7-6.1); WHITE BLOOD CELLS 7.1 10/3/uL (4.5-10.5)
[2017-02-23 04:13] LABS: HEMATOCRIT 24.7 % (40.0-51.0); PLATELET COUNT 35 10/3/uL (150-400)
[2017-02-23 04:14] LABS: MANUAL DIFF YES %
[2017-02-23 04:30] LABS: ALBUMIN 2.4 G/DL (3.5-5.0); BUN (BLOOD UREA NITROGEN) 21 MG/DL (6-23); CALCIUM, SERUM 7.7 MG/DL (8.5-10.4); CHLORIDE, SERUM 105 MMOL/L (96-112); CO2 (CARBON DIOXIDE) 32 MMOL/L (24-34); CREATININE 1.81 MG/DL (0.70-1.30); GFR AFRICAN AMERICAN 43 ML/MIN (>=60); GFR NON AFRICAN AMERICAN 37 ML/MIN (>=60); GLUCOSE, SERUM 117 MG/DL (60-99); PHOSPHORUS, SERUM 2.4 MG/DL (2.5-4.5); POTASSIUM, SERUM 3.6 MMOL/L (3.5-5.3); SODIUM, SERUM 142 MMOL/L (135-148)
[2017-02-23 05:11] LABS: BAND NEUTROPHILS 2 %; BLASTS 19 % (0); IMMATURE GRANS ABSOLUTE (CALC) 0.28 10/3/uL (0.0-0.11); LYMPHOCYTES 26 %; LYMPHOCYTES ABSOLUTE (CALC) 1.85 10/3/uL (0.67-4.30); METAMYELOCYTES 2 %; MONOCYTES 17 %; MONOCYTES ABSOLUTE (CALC) 1.21 10/3/uL (0.21-1.20); MYELOCYTES 2 %; NEUTROPHILS ABSOLUTE (CALC) 2.41 10/3/uL (2.02-8.40); PLATELET ESTIMATE DEC (ADEQUATE); RBC MORPHOLOGY NORM (NORMAL); SEGMENTED NEUTROPHIL (0) 32 %; TOTAL NUCLEATED CELLS 100
[2017-02-23 13:57] LABS: PROCALCITONIN 2.96 ng/mL (<0.5)
== END 2017-02-23 18:09 | disposition hospice, home (50) | DRG 682 ==
LOC: CDU1 14:34 → 4EA 19:05 → MIC 02-20 09:20
PROVIDERS: Internal Medicine; Internal Medicine Critical Care Medicine; Internal Medicine Nephrology
PROC: 0W9930Z Drainage of Right Pleural Cavity with Drainage Device, Percutaneous Approach (ICD-10-PCS; principal; 2017-02-20)
PROC: 02HV33Z Insertion of Infusion Device into Superior Vena Cava, Percutaneous Approach (ICD-10-PCS; 2017-02-20)
PROC: 4A02X4A Measurement of Cardiac Electrical Activity, Guidance, External Approach (ICD-10-PCS; 2017-02-20)
PROC: 5A1D60Z (ICD-10-PCS; 2017-02-20)
PROC: 06HM33Z Insertion of Infusion Device into Right Femoral Vein, Percutaneous Approach (ICD-10-PCS; 2017-02-20)
PROC: 0W9930Z Drainage of Right Pleural Cavity with Drainage Device, Percutaneous Approach (ICD-10-PCS; 2017-02-22)
DX: N17.9 Acute kidney failure, unspecified (principal); J96.01 Acute respiratory failure with hypoxia; J90 Pleural effusion, not elsewhere classified; I13.0 Hypertensive heart and chronic kidney disease with heart failure and stage 1 through stage 4 chronic kidney disease, or unspecified chronic kidney disease; I50.32 Chronic diastolic (congestive) heart failure; I48.2 Chronic atrial fibrillation; G40.909 Epilepsy, unspecified, not intractable, without status epilepticus; C92.Z0 Other myeloid leukemia not having achieved remission; E78.5 Hyperlipidemia, unspecified; N18.3 Chronic kidney disease, stage 3 (moderate); I25.10 Atherosclerotic heart disease of native coronary artery without angina pectoris; E87.6 Hypokalemia; N40.0 Benign prostatic hyperplasia without lower urinary tract symptoms; Z95.1 Presence of aortocoronary bypass graft; Z86.73 Personal history of transient ischemic attack (TIA), and cerebral infarction without residual deficits; Z79.899 Other long term (current) drug therapy; Z87.01 Personal history of pneumonia (recurrent); Z79.82 Long term (current) use of aspirin
CPT/HCPCS: 36415; 36569; 36600; 71010; 71250; 74176; 76775; 80048; 80053; 80069; 81001; 82140; 82330; 82465; 82533; 82550; 82553; 82805; 82945; 83605; 83615; 83735; 83880; 84100; 84145; 84157; 84443; 84484; 85025; 85610; 85730; 86022; 86039; 86431; 86850; 86900; 86901; 86920; 87015; 87040; 87070; 87102; 87116; 87205; 87449; 87641; 88112; 88305; 88341; 88342; 89051; 93005; 94640; A9270-GY; C1751; C8924; C8929; J0282; J0610; J1170; J2543; J2997; J3010; J3411; J3475; P9035; P9040; P9047; Q9957